=== PATIENT | male | born 1955 | race Hispanic/Latino ===

== ENCOUNTER → 2024-05-07 12:18 | Outpatient (REF) | payer BC, SELFPAY | LOC: MRI 3T 12:18 | PROVIDERS: ATTENDING PHYSICIAN Surgery; FAMILY PHYSICIAN Family Medicine | DX: R19.8 Other specified symptoms and signs involving the digestive system and abdomen (principal) | CPT/HCPCS: 72197; A9575 ==

== ENCOUNTER → 2024-09-03 08:01 | Outpatient (REF) | payer BC, SELFPAY | LOC: WOUND 08:01 | PROVIDERS: ATTENDING PHYSICIAN Surgery; FAMILY PHYSICIAN Family Medicine | DX: T81.30XA Disruption of wound, unspecified, initial encounter (principal); Y83.8 Other surgical procedures as the cause of abnormal reaction of the patient, or of later complication, without mention of misadventure at the time of the procedure; K60.30 Anal fistula, unspecified; S36.81XA Injury of peritoneum, initial encounter; X58.XXXA Exposure to other specified factors, initial encounter | CPT/HCPCS: 11042; 99203 ==

== ENCOUNTER → 2024-09-13 08:34 | Outpatient (REF) | payer BC, SELFPAY | LOC: WOUND 08:34 | PROVIDERS: ATTENDING PHYSICIAN Surgery | DX: T81.30XA Disruption of wound, unspecified, initial encounter (principal); Y83.8 Other surgical procedures as the cause of abnormal reaction of the patient, or of later complication, without mention of misadventure at the time of the procedure; K60.30 Anal fistula, unspecified; S36.81XA Injury of peritoneum, initial encounter; X58.XXXA Exposure to other specified factors, initial encounter | CPT/HCPCS: 17250; 99213 ==

== ENCOUNTER → 2024-09-20 08:31 | Outpatient (REF) | payer BC, SELFPAY | LOC: WOUND 08:31 | PROVIDERS: ATTENDING PHYSICIAN Surgery; FAMILY PHYSICIAN Family Medicine | DX: I87.313 Chronic venous hypertension (idiopathic) with ulcer of bilateral lower extremity (principal); L97.211 Non-pressure chronic ulcer of right calf limited to breakdown of skin; L97.221 Non-pressure chronic ulcer of left calf limited to breakdown of skin; I87.2 Venous insufficiency (chronic) (peripheral); I73.9 Peripheral vascular disease, unspecified; I25.10 Atherosclerotic heart disease of native coronary artery without angina pectoris; G20.B2 Parkinson's disease with dyskinesia, with fluctuations | CPT/HCPCS: 17250; 99213 ==

== ENCOUNTER → 2024-09-28 11:08 | Outpatient (REF) | payer BC, SELFPAY | LOC: WOUND 11:08 | PROVIDERS: ATTENDING PHYSICIAN Surgery; FAMILY PHYSICIAN Family Medicine | DX: T81.30XA Disruption of wound, unspecified, initial encounter (principal); S36.81XA Injury of peritoneum, initial encounter; K60.30 Anal fistula, unspecified; Y83.8 Other surgical procedures as the cause of abnormal reaction of the patient, or of later complication, without mention of misadventure at the time of the procedure; X58.XXXA Exposure to other specified factors, initial encounter | CPT/HCPCS: 17250; 99213 ==

== ENCOUNTER → 2024-10-19 08:37 | Outpatient (REF) | payer BC, SELFPAY | LOC: WOUND 08:37 | PROVIDERS: ATTENDING PHYSICIAN Surgery; FAMILY PHYSICIAN Family Medicine | DX: T81.30XA Disruption of wound, unspecified, initial encounter (principal); K60.30 Anal fistula, unspecified; Y83.8 Other surgical procedures as the cause of abnormal reaction of the patient, or of later complication, without mention of misadventure at the time of the procedure | CPT/HCPCS: 17250; 99213 ==

== ENCOUNTER 2025-01-09 06:19 | Day surgery (SDC) | payer BC, SELFPAY ==
[2025-01-08 13:54] VITALS: BMI 33.9
[2025-01-09] VITALS (8 sets, daily range): BP systolic 111–137; BP diastolic 63–86; BMI 33.9
[2025-01-09] MEDS: NORMOSOL-R/PLASMALYTE-A 1000 IV (07:33)
== END 2025-01-09 10:20 | disposition home or self-care (01) ==
LOC: SDS 06:19
PROVIDERS: ATTENDING PHYSICIAN Surgery; FAMILY PHYSICIAN Family Medicine
DX: K60.30 Anal fistula, unspecified (principal)
CPT/HCPCS: 46280; 88304; 36415; 93005

== ENCOUNTER 2025-05-15 06:25 | Day surgery (SDC) | payer BC, SELFPAY ==
[2025-05-15] VITALS (9 sets, daily range): BP systolic 128–172; BP diastolic 77–97
--- NOTE | 2025-05-15 17:53 | W.IMMPOSTOP ---
Surgical Immed Post Op Note
-
Primary Surgeon: Markell Zambrano MD
Assisting Surgeon: Bernardino Armijo MD; Daniela Cuevas MD, PGY6
Pre-op Diagnosis: anal fistula
Post-op Diagnosis: same
Procedure Performed: LIFT (ligation internal fistula tract) procedure
Anesthesia Type: general plus local
Specimen / Cultures: none
Estimated Blood Loss: 30 cc
Complications: no immediate
Operative Findings: 1) anterior deep anal fistula 2) no obvious 'mucosa' surrounding anterior midlind anal canal internal opening of fistula--leading to decision to perform LIFT rather than ERAF (endorectal advancement flap)
Cota placed and removed for procedure.
Dressings include Surgicel, Gelfoam anal tampon, dry 4 by 4s and tape.
Will keep in overnight for post surgical recovery.
Continue Ancef overnight.
Full liquid diet.
[2025-05-15] MEDS: DILAUDID 0.25 MG IV (18:24)
--- NOTE | 2025-05-15 20:00 | PTCARENOTE ---
Pt a 69 y/o with an anal fistula arrived from PACU at 19:30 post LIFT (ligation internal fistula tract) procedure general plus local. Pt PMH Edema, fistulotomy 07/03, ACL repair. impaired vision. AOx3, bed in a low position, call light in place,
care ongoing. Pt tolerated a Full liquid diet.
[2025-05-15] MEDS: TYLENOL 650 MG PO ×2 (20:51→23:41)
[2025-05-15] MEDS: TORADOL 10 MG IV (20:52)
[2025-05-15] MEDS: ANCEF 10 IV (23:40)
[2025-05-16] MEDS: TORADOL 10 MG IV ×2 (02:30→08:12)
[2025-05-16] MEDS: TYLENOL 650 MG PO ×2 (03:04→08:12)
[2025-05-16 03:47] VITALS: BP 104/60
[2025-05-16 07:22] LABS: Hematocrit 41.3 % (39.0-52.0); Hemoglobin 14.1 g/dL (13.0-18.0); Mean Corp Hgb Conc. 34.1 g/dL (33.0-37.0); Mean Corpuscular Volume 86.0 fL (80.0-94.0); Nucleated Red Blood Cells % 0 % (-); Platelet Count 226 10^3/uL (130-400); Red Cell Dist. Width 12.8 % (11.5-14.5)
[2025-05-16 07:45] VITALS: BP 127/71
[2025-05-16 07:47] LABS: Blood Urea Nitrogen 14 mg/dl (9-20); Calcium 8.3 mg/dl (8.4-10.2); Carbon Dioxide 24 mmol/L (22-30); Chloride 106 mmol/L (98-107); Estimated Creatinine Clearance 87 ml/min; Glucose 117 mg/dl (70-99); Magnesium 2.2 mg/dl (1.6-2.3); Potassium 4.7 mmol/L (3.5-5.1); Sodium 137 mmol/L (135-145); eGFR > 60.00
[2025-05-16] MEDS: MAALOX 30 ML PO (08:12)
[2025-05-16] MEDS: ANCEF 10 IV (08:13)
--- NOTE | 2025-05-16 10:14 | CM ---
Reviewed the chart notes and spoke with the patient at the bedside. The patient resides with his spouse in a two story home with no steps to enter. The patient reports no DME/VN/SNF in the past. The patient confirmed his [facility] of choice [facility]. The patient anticipates being discharged to home today. Patient's spouse to provide transportation. CM continues to be available to patient/family and is monitoring medical plan for needs at discharge.
Plan: Discharge to home today. No additional needs identified at this time.
--- NOTE | 2025-05-16 11:14 | W.PN.CRS1 ---
Today's Communication / Plan
-
Discharge
Assessment/Plan
-
POD1 LIFT (ligation internal fistula tract) procedure
WBC 11.9, hemoglobin 14.1
Vitals normal
- Continue regular diet
- Continue course of antibiotics. Will convert to Keflex as an outpatient.
- Out of bed as tolerated
- Sitz bath twice a day for 7 days
- Stool softeners as needed
- Daily fiber supplement
- Okay for discharge today. Wound care discussed with patient. Packing was removed. Follow-up in the office with Dr. Zambrano in 2 weeks. Continue course of antibiotics. All questions addressed. Patient declined products at this time.
Subjective Data
Procedure
05/15/2025- LIFT (ligation internal fistula tract) procedure
Subjective Data
Date of Service: May 16, 2025
Patient states he feels well. His pain is controlled. He has no new complaints.
Objective Data
-
Vital Signs
Temp Pulse Resp BP Pulse Ox
98.2 F 63 16 127/71 96
05/16/25 07:45 05/16/25 07:45 05/16/25 07:45 05/16/25 07:45 05/16/25 07:45
Intake & Output
05/15/25 05/16/25 05/17/25
06:59 06:59 06:59
Intake Total 605 / 605 480 / 480
Output Total 500 / 500
Balance 105 / 105 480 / 480
Intake:
Oral fluids 480 / 480 480 / 480
IV fluids (Total) 125 / 125
normasol 125 / 125
Output:
Urine, Voided 500 / 500
Lab Results
05/16/25 06:46
05/16/25 06:46
Physical Exam
-
General: No Acute Distress and AOx3
Abdomen: Soft, Non Distended and Non Tender
Rectal: Other (Wound clean dry and intact. Dressing removed.)
Skin: Warm and Dry
Wound: No Signs of Infection
[2025-05-16 11:45] VITALS: BP 117/68
== END 2025-05-16 13:51 | disposition home or self-care (01) ==
LOC: SDS 06:25
PROVIDERS: ATTENDING PHYSICIAN Surgery
DX: K60.30 Anal fistula, unspecified (principal)
CPT/HCPCS: 46275; 80048; 83735; 85025